=== PATIENT | female | born 1950 | race Caucasian/White ===

== ENCOUNTER → 2020-02-10 | Outpatient (CLI) | payer MEDICARE, OTHER ==
--- NOTE | 2020-02-10 11:03 | 2DMMODE ---
[place] [address] 2 D/M-MODE ECHOCARDIOGRAM Name: WALTER BELL Kyaw Room: [facility]#: [id number] Admission: 02/10/20 Attend Phys: Dave Rolon, Discharge: Date of : 50 Date of Service: 02/10/20 1103 Report #: [id number] THIS REPORT FOR: cc: Physician not on staff Physician not on staff Chano Quiñonez MD [facility] ~ APPROVED REPORT Study performed: 02/10/2020 09:55:57 EXAM: Comprehensive 2D, Doppler, and color-flow Echocardiogram Patient Location: Bedside BSA: 1.95 2D Dimensions IVSd: 13.21 (7-11mm) LVOT Diam: 18.75 (18-24mm) LVDd: 43.43 mm PWd: 10.61 (7-11mm) Ascending Ao: 24.59 (22-36mm) LVDs: 32.04 (25-40mm) Aortic Root: 25.26 mm Volumes Left Atrial Volume (Systole) LA ESV Index: 21.50 mL/m2 Aortic Valve AoV Peak Bijan.: 0.98 m/s AO Peak Gr.: 3.88 mmHg LVOT Max P.10 mmHg AO Mean Gr.: 2.33 mmHg LVOT Mean P.67 mmHg LVOT Max V: 0.88 m/s AO V2 VTI: 23.07 cm LVOT Mean V: 0.60 m/s OSMAR (VTI): 2.69 cm2 LVOT V1 VTI: 22.44 cm Mitral Valve E/A Ratio: 1.19 MV Decel. Time: 217.55 ms MV E Max Bijan.: 0.73 m/s MV PHT: 63.09 ms MVA (PHT): 3.49 cm2 TDI E/Lateral E': 7.30 E/Medial E': 6.64 [place] [address] 2 D/M-MODE ECHOCARDIOGRAM Name: WALTER BELL Room: [facility]#: [id number] Admission: 02/10/20 Attend Phys: Dave Rolon, Discharge: Date of : 50 Date of Service: 02/10/20 1103 Report #: [id number] Medial E' Bijan.: 0.11 m/s Lateral E' Bijan.: 0.10 m/s Pulmonary Valve PV Peak Bijan.: 0.86 m/s PV Peak Gr.: 2.98 mmHg Tricuspid Valve RAP Estimate: 5.00 mmHg TR Peak Gr.: 32.16 mmHg RVSP: 37.16 mmHg PA Pressure: 37.16 mmHg Left Ventricle The left ventricle is normal size. There is normal LV segmental wall motion. There is normal left ventricular wall thickness. Left ventricular systolic function is normal. The left ventricular ejection fraction is within the normal range. LVEF is 55-60%. The left ventricular diastolic function is normal. Right Ventricle The right ventricle is normal size. The right ventricular systolic function is normal. Atria The left atrium size is normal. The right atrium size is normal. Aortic Valve Mild aortic valve sclerosis. No aortic regurgitation is present. There is no aortic valvular stenosis. Mitral Valve The mitral valve is normal in structure. Mild mitral regurgitation. No evidence of mitral valve stenosis. Tricuspid Valve The tricuspid valve is normal in structure. Mild tricuspid regurgitation. Pulmonic Valve The pulmonary valve is normal in structure. Trace pulmonic regurgitation. Great Vessels The aortic root is normal in size. IVC is normal in size and collapses >50% [place] [address] 2 D/M-MODE ECHOCARDIOGRAM Name: WALTER BELL Room: [facility]#: [id number] Admission: 02/10/20 Attend Phys: Dave Rolon, Discharge: Date of : 50 Date of Service: 02/10/20 1103 Report #: [id number] Pericardium There is no pericardial effusion. <Conclusion> The left ventricle is normal size. Left ventricular systolic function is normal. The left ventricular ejection fraction is within the normal range. LVEF is 55-60%. The left ventricular diastolic function is normal. The right ventricle is normal size. The left atrium size is normal. Mild aortic valve sclerosis. No aortic regurgitation is present. There is no aortic valvular stenosis. The mitral valve is normal in structure. Mild mitral regurgitation. The tricuspid valve is normal in structure. Mild tricuspid regurgitation. IVC is normal in size and collapses >50% with inspiration. There is no pericardial effusion. There is normal LV segmental wall motion. <ELECTRONICALLY SIGNED> By: Chano Quiñonez MD, FACC 02/10/20 1103 1103 110 Chano Quiñonez MD, FACC /INF
== END ==
LOC: M.CRD 09:19
PROVIDERS: ATTEND Internal Medicine Cardiovascular Disease
DX: I08.3 Combined rheumatic disorders of mitral, aortic and tricuspid valves (principal); I49.3 Ventricular premature depolarization